=== PATIENT | female | born 1965 | race African-American/Black ===

== ENCOUNTER 2017-03-03 14:57 | Emergency (ER) | payer SELFPAY ==
[~2017-03-03 14:57] MED LIST: AMOXicillin 250 MG CAP ONE; Lorazepam 0.5 MG TAB ONE
[2017-03-04] MEDS ORDERED: Lorazepam 1 MG TAB ONE ×2 (05:24→12:29)
[2017-03-04] MEDS ORDERED: risperiDONE 1 MG TAB ONE (12:29)
[2017-03-04] MEDS ORDERED: Divalproex Sodium DR 500 MG TAB PO SCH (17:45)
[2017-03-04] MEDS ORDERED: Atenolol 50 MG TAB PO SCH (17:45)
[2017-03-04] MEDS ORDERED: Acetaminophen 325 MG TAB ONE (17:53)
[2017-03-05] MEDS ORDERED: Atenolol 50 MG TAB PO SCH (08:45)
[2017-03-06] MEDS ORDERED: Divalproex Sodium DR 500 MG TAB PO SCH ×2 (06:15→21:00)
[2017-03-06] MEDS ORDERED: Atenolol 50 MG TAB PO SCH (07:00)
[2017-03-07] MEDS ORDERED: Lisinopril 10 MG TAB PO SCH (20:15)
[2017-03-08] MEDS ORDERED: Oxymetazoline HCl 0.05% ( 15 ML ) NASAL SCH (04:15)
[2017-03-08] MEDS ORDERED: Sodium Chloride 0.65% Nasal 44 ML BOT EA NARE PRN (04:44)
[2017-03-08] MEDS ORDERED: Atenolol 50 MG TAB PO SCH (10:00)
[2017-03-09] MEDS ORDERED: hydrOXYzine Pamoate 25 mg Capsule PO PRN (20:43)
[2017-03-10] MEDS ORDERED: Lisinopril 20 MG TAB PO SCH (09:00)
== END 2017-03-21 09:55 ==
LOC: ERS 14:57
DX: F20.9 Schizophrenia, unspecified (principal); R45.851 Suicidal ideations; E03.9 Hypothyroidism, unspecified; I10 Essential (primary) hypertension; F31.9 Bipolar disorder, unspecified; F17.210 Nicotine dependence, cigarettes, uncomplicated; Z79.899 Other long term (current) drug therapy
CPT/HCPCS: 99406; Q0177

== ENCOUNTER 2017-12-26 14:26 | Emergency (ER) | payer OTHER ==
[2017-12-26 16:46] LABS: Bilirubin Negative (Negative); Blood, Urine Small (Negative); Clarity TURBID (Clear); Glucose, Urine (Dipstick) Negative (Negative); Leukocyte Large (Negative); Nitrite Negative (Negative); Protein, Urine (Dipstick) Trace mg/dL (Neg-Trace); Specific Gravity, Urine 1.013 (1.002-1.036); Urobilinogen 0.2 mg/dL (0.2-1.0); pH, Urine 5.5 (5.0-9.0)
[2017-12-26 16:48] LABS: Bacteria/HPF 1+ HPF (None Seen); Pathc Cast-AUWi Flag 3.63 (0-2.49); Squamous Epithelial 21-50 HPF (0-3)
[2017-12-26 16:50] LABS: Hyaline Casts/LPF 0-3 HYALINE CAST LPF (0-3 Hyaline); Manual Microscopic Reviewed? No Path Casts Seen
[2017-12-26 17:06] LABS: HBSAg Index 0.26 S/CO (0-0.99); HIV (1/2) Antibody/Antigen Non-Reactive (NonReactive); HIV 1/2 INDEX 0.11 S/CO (<1.00); Hep B Surf Ag Non-Reactive S/CO (NonReactive); Hep C IgG Ab Non-Reactive (NonReactive); Hep C Index 0.04 S/CO (0-0.79)
== END 2017-12-26 16:50 | disposition home or self-care (01) ==
LOC: ERS 14:26 → LAB 14:26 → EDSTATUS 14:32 → ERS 16:50
DX: Z77.21 Contact with and (suspected) exposure to potentially hazardous body fluids (principal); I10 Essential (primary) hypertension; M19.90 Unspecified osteoarthritis, unspecified site; E03.9 Hypothyroidism, unspecified; F25.9 Schizoaffective disorder, unspecified; F31.9 Bipolar disorder, unspecified; F17.210 Nicotine dependence, cigarettes, uncomplicated; Z79.899 Other long term (current) drug therapy
CPT/HCPCS: 81003; 81015; 86803; 87340; 87389; 99283